=== PATIENT | female | born 1945 | race Caucasian/White ===

== ENCOUNTER → 2016-05-23 | Outpatient (CLI) | payer OTHER ==
[~2016-05-23] MED LIST: ASPIRIN81 M1 PO; ASPIRIN81 M2 PO; FLEXERIL10 M1 PO; GABAPENTIN800 MG PO; HYDROCODON-ACE1 EAC7 PO; K-DUR20 ME1 PO; LEVAQUIN PO; LEVAQUIN750 M1 PO; LISINOPRIL10 MG PO; LOMOTIL WHITE2.5 M1 PO; METOPROLOL TAR25 MG PO; NEURONTIN100 MG PO; PLAVIX PO; SIMVASTATIN40 MG PO; VITAMIN B12-FO1 EACH PO
--- NOTE | ~2016-05-23 | CR7 ---
[facility] A Service of [facility] RADIOLOGY TEXT RESULTS PATIENT: TIFFANIE CRUZ LOCATION: [facility] : 43 UNIT #: [id number] AGE: [address]: Mendez Ott MD SEX: F ORDER DR: [id number] [facility] [address] [facility]. [place], [place] [address] [id number] MR#: [id number] Acc #: [id number] NAME: TIFFANIE CRUZ. : 1945 SEX: F STUDY DATE/TIME: 05/23/2016 10:21 UNIT: [facility] ROOM: STUDY DESCRIPTION: CR Abdomen Single AP View Attending Physician: Mendez Ott M.D. Referring Physician: Mendez Ott M.D. Ordering Physician: Mendez Ott M.D. Primary Care Physician: Charanjit Boo M.D. MEDICAL IMAGING REPORT This report is preliminary unless electronic signature is present EXAM Abdominal radiograph 05/23/2016 INDICATIONS Kidney cyst. Generalized abdominal pain and weight loss for the past 1-2 months. History of cervical cancer 2001. PROCEDURE Supine view of the abdomen. COMPARISON STUDIES CT from 02/13/2010 FINDINGS No definite visible radiodense urinary system calculus. A tiny radiodensity projecting between the left 12th and 11th ribs is favored to represent calcification along the splenic artery seen on the previous CT. There is postsurgical change in the pelvis. Nonobstructing bowel gas pattern and significant degenerative change in the lower lumbar spine. IMPRESSION 1. No definite visible radiodense urinary system calculus. See above. 2. Degenerative change in the lumbar spine. Dictated by... Sanjeev Ahumada M.D. THIS IS AN ELECTRONICALLY VERIFIED REPORT Sanjeev Ahumada M.D. at 05/24/2016 7:35 AM Eleno TD: 05/23/2016 15:26 JOB #: [id number] [facility] A Service of [facility] RADIOLOGY TEXT RESULTS PATIENT: TIFFANIE CRUZ LOCATION: [facility] #: [id number] : 43 UNIT #: [id number] AGE: [address]: Mendez Ott MD SEX: F ORDER DR: MEDICAL IMAGING REPORT Page 1 of 1 COPY
== END | disposition home or self-care (01) ==
LOC: CRAD 10:04
DX: N20.0 Calculus of kidney (principal); N28.1 Cyst of kidney, acquired; M47.816 Spondylosis without myelopathy or radiculopathy, lumbar region
CPT/HCPCS: 74000

== ENCOUNTER 2016-06-04 22:48 | Inpatient (IN) | payer OTHER ==
--- NOTE | ~2016-06-04 | A ---
[facility] Nutrition Therapy DATE: 06/06/16 Patient: TIFFANIE CRUZ Physician: JIM Address: [address] Room/Bed: [address] [place] [address], Zip: [place] [address] Admit Date: 06/05/16 Date of : 43 Height: 5 0 Weight: 79 36.2 NUTRITIONAL ASSESSMENT: REASON: Low BMI 70 yo female admitted for N/V/D, MODE PMH: CAD, HTN, HLD, cervical cancer Anthropometrics: Ht: 5'0" Wt: 35.9 kg (79#) BMI: 15.4 IBW: 100#, 79% IBW Labs: Na+ 129, K+ 3.2, Gluc 182, BUN 33, Creat 2.2, Ca++ 7.0, Alb 3.0, GFR 21.7 Meds: Levaquin, Protonix, D5%, Zofran I/O & Bowel function: 2760/1229, last BM 06/05 (diarrhea) Skin Integrity: Small abrasion (R groin), skin tear (mid chest, L lower back), no edema noted Estimated Nutrition Needs: Increased d/t low BMI, wt loss Assessment: Chart reviewed, events noted. Pt has been having intractable N/V/D over the past several days. Pt is not to have dairy per MD note. Pt states having a poor appetite, while the N/V has somewhat subsided. Pt reported ~15-20# wt loss over the past 1-2 months d/t N/V/D. RD architect intern provided verbal and written N/V/D diet education. Pt verbalized understanding. RD architect intern encouraged continuation of Ensure Clear. Pt had no diet questions at this time. See recommendations below. Dx: Inadequate energy intake RT N/V/D AEB 15.4 BMI, 79% IBW, ~15-20# wt loss. Intervention: 1. Diet education 2. Ensure Clear TID 3. Clear liquid diet Monitoring, Evaluation and Goals: 1. PO intake; consume >75% of meals and supplements 2. Weight; prevent unintentional weight loss, promote gradual weight gain 3. Labs; WNL 4. GI; promote regular GI function Recommendations: [facility] Nutrition Therapy DATE: 06/06/16 Patient: TIFFANIE CRUZ Physician: JIM Address: [address] Room/Bed: [address] [place] [address], Zip: [place] [address] Admit Date: 06/05/16 Date of : 43 Height: 5 0 Weight: 79 36.2 1. Continue mcneil Ensure Clear TID w/ meals. 2. Once diet advances, please order Ensure Enlive shakes TID. 3. Once medically feasible, advance the pt to a low sodium diet as tolerated. Pt is at a moderate-severe nutritional risk. RD will f/u per protocol. Respectfully, Kaykay Landin, Pantry Chef Talita Rodriguez, SCOTT, LD Food and Nutritional Services [facility] [place] [facility] cc: client file
--- NOTE | ~2016-06-04 | CO ---
Unit #: [id number] #: [id number] Patient: TIFFANIE CRUZ [id number] [address] [address] [id number] I MR#: [id number] NAME: TIFFANIE CRUZ. ROOM: 55 Age: 70 Sex: F Admission Date: 06/05/2016 : 1945 Attending Physician: Marvin Lomeli M.D. Primary Care Physician: Charanjit Boo M.D. Consultation Date: 06/07/2016 CONSULTATION REPORT REASON FOR CONSULTATION Antibiotic management in a patient with E. coli sepsis. HISTORY OF PRESENT ILLNESS This is a 70-year-old female who had several day history of nausea, vomiting, diarrhea with associated weakness for several days prior to admission. The patient denies any fever or chills at home. She denies any chest pain, shortness of breath. She was admitted to the hospital for further evaluation and she was noted to have elevated creatinine, elevated white blood cell count with left shift and positive blood cultures for E. coli. ID was asked to evaluate for further management. The patient is currently awaiting a CT scan of her abdomen and pelvis. In discussion with the patient, she reports that she does not urinate. She has a "bladder bag" from radiation cystitis when she had cervical cancer in 2001. She denies any changes in the urine but she does report that the urine sample that was taken was from the bag and not through sterile technique. The patient reports her nausea, vomiting and diarrhea have all subsided. PAST MEDICAL HISTORY 1. Coronary artery disease with stent placement. 2. GI bleed. 3. Hypertension. 4. Hyperlipidemia. 5. Cervical cancer with chemotherapy and radiation in 2001. 6. She had bladder perforation and radiation cystitis. 7. Multiple colonoscopies. 8. Multiple procedures. SOCIAL HISTORY She denies any alcohol, tobacco or other drug use. She has a past tobacco use. ALLERGIES No known allergies. MEDICATIONS The patient is currently on Levaquin. For other medications please refer to patient's MAR. REVIEW OF SYSTEMS Negative except for as previously mentioned above in the History of Present Illness. Unit #: [id number] #: [id number] Patient: TIFFANIE CRUZ PHYSICAL EXAMINATION VITAL SIGNS: Temperature 98.9 with a T-max of 101.2, pulse is 80, blood pressure is 126/70 and respiratory rate is 18. GENERAL: This is a no apparent distress female who is resting in the bed comfortably. HEENT/NECK: Her pupils are equal. Her neck is supple. CARDIOVASCULAR: S1, S2. Regular rate and rhythm. PULMONARY: Clear to auscultation bilaterally with no wheezes or rhonchi noted. ABDOMEN: Positive bowel sounds. Soft and nontender. There is a urostomy that is noted with clear urine and the (1) stoma is pink. EXTREMITIES: She has no clubbing, cyanosis or edema or non-healing wounds on her extremities. DIAGNOSTIC STUDIES LABORATORY: BUN 21, creatinine 1.9 which is improved from 3.5 on admission. Sodium 131, potassium 3.4, chloride 104, CO2 18, bilirubin 0.8, AST 31, ALT of 21. Lactic acid on admission was 1.2. WBC 6.8 which is improved from 14.9 on admission with 25% bands, platelets 172, hemoglobin 9.2, hematocrit 28.5. Urinalysis is a nonsterile specimen collected. Urine culture is pending. However, suspect this will be contamination as it was collected in a non-sterile technique. 06/05 blood culture shows E. coli. Sensitivity is noted. She is pansensitive with no resistance. IMAGING: CT scan is currently pending. It does appear in late April of 2016 she had an abdominal film for weight loss, abdominal pain for several months which was negative for stones. IMPRESSION This is a 70-year-old female with a history of cervical cancer in 2021 with radiation cystitis. The patient now has a development of a urostomy. Over the last several days, the patient has had persistent nausea, vomiting and diarrhea which has since subsided since admission to the hospital. The patient is noted to have two of two positive blood cultures for E. coli that is pansensitive. At this time, suspect that the E. coli bacteremia is secondary to a urologic source. However, agree with CT scan of the abdomen and pelvis due to patient's reported nausea, vomiting and diarrhea on admission. Patient may require a evaluation due to her past history of radiation cystitis. At this time, I would like to change antibiotic therapy from Levaquin to ceftriaxone 2 g daily. Would recommend to repeat blood cultures x2 30 minutes apart. Will continue to follow CBC and BMP. However, both of these have improving leukocytosis and creatinine function. This case will be discussed with Dr. Jose Eid who will evaluate this patient today. Thank you for allowing us to participate in the care of this patient. Further recommendations to follow pending patient's clinical course. Unit #: [id number] #: [id number] Patient: TIFFANIE CRUZ J Dictated by... Taniya BerkowitzPShelleyRShelleyNShelley for Aparna Carrillo/vaughn TD: 06/07/2016 10:44 JOB #: [id number] CONSULTATION REPORT Page 1 of 1 X X CONSULTATION REPORT
--- NOTE | ~2016-06-04 | CT4 ---
[facility] A Service of [facility] RADIOLOGY TEXT RESULTS PATIENT: TIFFANIE CRUZ LOCATION: [facility] 559-01 : 43 UNIT #: [id number] AGE: [address]: Marvin Lomeli MD SEX: F ORDER DR: [id number] [facility] [address] [facility]. [place], [place] [address] [id number] I MR#: [id number] #: [id number] NAME: TIFFANIE CRUZ. : 1945 SEX: F STUDY DATE/TIME: 06/07/2016 11:31 UNIT: [facility] ROOM: [facility] STUDY DESCRIPTION: CT Abd and Pelv Wo Cont Attending Physician: Marvin Lomeli M.D. Ordering Physician: Marvin Lomeli M.D. Primary Care Physician: Charanjit Boo M.D. MEDICAL IMAGING REPORT This report is preliminary unless electronic signature is present EXAM CT abdomen and pelvis without contrast INDICATIONS Nausea, vomiting, diarrhea since 06/01/2016. PROCEDURE Unenhanced CT of the abdomen and pelvis. This CT exam was performed with one or more of the following radiation dose reduction techniques: automatic exposure control, adjustment of mA and/or kV according to patient size, and iterative reconstruction. COMPARISON 02/13/2010 FINDINGS Abdomen without contrast: Bilateral pleural effusions trace on the right, small to moderate on the left. There is minimal bibasilar atelectasis. The liver, spleen, adrenal glands, pancreas and gallbladder show no definite acute abnormality. Postsurgical change in the bowel in the right lower quadrant. There is a right mid abdominal ostomy. No organized fluid collection is seen in the abdomen. There is moderate bilateral hydronephrosis and hydroureter. The ureters are prominent to the level of the pelvic inlet. Pelvis without contrast: Bladder is not well seen. It may be surgically absent. Correlate with patient's operative history. There is mild thickening of small bowel loops in the pelvis and a small amount of fluid scattered in the pelvis. No aggressive appearing bone lesion. IMPRESSION [facility] A Service of [facility] RADIOLOGY TEXT RESULTS PATIENT: TIFFANIE CRUZ LOCATION: [facility] 559-01 : 43 UNIT #: [id number] AGE: [address]: Marvin Lomeli MD SEX: F ORDER DR: 1. Postsurgical change of small bowel in the right lower quadrant as well as a right mid abdominal ostomy. The bladder is not well seen and may be decompressed or surgically absent. Correlate with patient's operative history. 2. There is moderate bilateral hydroureteronephrosis extending to the pelvic inlet at which point the ureters are not well seen. Correlate with patient's operative history. The patient may be status post cystectomy with urinary diversion. 3. Mild thickening of small bowel loops in the pelvis as well as a small amount of pelvic fluid nonspecific and may be within recent postsurgical limits. No definite organized fluid collection is seen. 4. Bilateral pleural effusions. Dictated by... Sanjeev Ahumada M.D. THIS IS AN ELECTRONICALLY VERIFIED REPORT Sanjeev Ahumada M.D. at 06/08/2016 7:19 AM EED/cynthia TD: 06/07/2016 21:39 JOB #: [id number] MEDICAL IMAGING REPORT Page 1 of 1 COPY
--- NOTE | ~2016-06-04 | HP ---
Unit #: [id number] #: [id number] Patient: TIFFANIE CRUZ [id number] [address] [address] [id number] I MR#: [id number] NAME: TIFFANIE CRUZ. ROOM: 559 Age: 70 Sex: F Admission Date: 06/05/2016 : 1945 Attending Physician: Marvin Lomeli M.D. Primary Care Physician: Charanjit Boo M.D. HISTORY AND PHYSICAL REASON FOR ADMISSION Intractable nausea, vomiting, diarrhea, profound weakness. HISTORY OF PRESENT ILLNESS The patient is a 70-year-old female who resides at home with her daughter who presented to the hospital secondary to intractable nausea, vomiting, as well as profound weakness that she had been having over the past several days. She states that she is usually fairly independent, is able to ambulate without any difficulty, shortness of breath. She is able to function fairly independently in regards to her normal activities of daily living but she states over the past four to five days began developing nausea, vomiting, as well as diarrhea. While she was evaluated in the emergency room, it was noted her creatinine was elevated at 3.5, unclear baseline. Bandemia was noted at 25%. White count was elevated at 15,000 and, thus, the decision was made for acute kidney injury, dehydration, possible sepsis on admission. PAST MEDICAL HISTORY Through chart review, coronary artery disease with prior stent placement. [facility] Director noted to be Dr. Arita. A prior history of GI bleed in June 2008, hypertension, hyperlipidemia, prior history of cervical cancer, chemotherapy and radiation 2001. PAST SURGICAL HISTORY Aforementioned cardiac catheterization with drug-eluting stents June 2008 as well as February of 2009, colonoscopies per patient with last one being approximately 2008. SOCIAL HISTORY The patient resides with her daughter at home. She denies any alcohol or tobacco use. There is a prior history of tobacco use. I believe approximately a 30-pack year smoking history. FAMILY HISTORY Reviewed, noncontributory, nonpertinent secondary to advanced age. ALLERGIES No known drug allergies. HOME MEDICATIONS Listed, unverified. The patient only tells me that she takes cholesterol medications, blood pressure medications as well as gabapentin. Unit #: [id number] #: [id number] Patient: TIFFANIE CRUZ REVIEW OF SYSTEMS Please see HPI, 12-point otherwise negative except for those positive noted in the HPI. PHYSICAL EXAMINATION GENERAL APPEARANCE: The patient is a frail, 70-year-old female in no acute distress. VITAL SIGNS: Temperature on admission 98.6. Pulse 104. Respiratory rate 20. Blood pressure 96/81. HEENT: Atraumatic, normocephalic. Ears: Tympanic membranes do not reveal any erythema or injection. NECK: Supple. CARDIOVASCULAR: S1, S2 without murmur. RESPIRATORY: Clear. GASTROINTESTINAL/ABDOMEN: Diffuse tenderness noted but no rebound. No guarding. LOWER EXTREMITIES: No evidence of any lower extremity edema. No calf tenderness. NEUROLOGIC: The patient is awake and oriented x3. No evidence of any focal nerve deficits. DIAGNOSTIC STUDIES LABORATORY: Labs at the time of admission include an aforementioned elevated white count as well as a creatinine at 3.5. GFR estimated at 12. Repeat laboratory studies show a creatinine of 3.1, GFR 14. Stool studies show C. diff. currently pending. ER COURSE The patient received normal saline, Zofran and Mylanta. INITIAL ADMISSION DIAGNOSES 1. Intractable nausea, vomiting. 2. Intractable diarrhea. 3. Acute kidney injury. 4. Leukocytosis. 5. Prior history of coronary artery disease. 6. Prior history of hypertension. 7. Hyperlipidemia. PLAN Admission telemetry floor. Blood cultures have already been drawn. Certainly, the patient is alert and oriented x3. She does not appear to have a clinical picture of sepsis at the present time. C. diff. is currently pending. We will try to advance diet from clears into regular. If she is unable to tolerate, GI consultation will be obtained. At this point, from a cardiac standpoint, she is currently stable. Routine laboratory studies to follow. Plans have been reviewed with patient. We will replenish electrolytes, continue IV fluids, follow labs, recheck BMP in a.m. Dictated by Aparna Leach/mina TD: 06/06/2016 09:32 JOB #: [id number] Unit #: [id number] #: [id number] Patient: TIFFANIE CRUZ HISTORY AND PHYSICAL Page 1 of 1 X Marvin Lomeli MD HISTORY AND PHYSICAL
--- NOTE | ~2016-06-04 | FU ---
[facility] Nutrition Therapy DATE: 06/09/16 Patient: TIFFANIE CRUZ Physician: MORCAR Address: [address] [facility] Room/Bed: [address] [place] [address], Zip: [place] [address] Admit Date: 06/05/16 Date of : 43 Height: 5 0 Weight: 89 40.5 NUTRITION MONITORING/FOLLOW-UP: Reason: Nutrition follow-up Anthropometrics: Ht: 5'0" Adm wt: 79# (36 KG) BMI: 15.4 Current wt: 89# Labs: Na+ 132, K+ 3.1, Gluc 156, Creat 1.5, Ca++ 6.9 Meds: Protonix, Zofran, NaCl I&O's: 1110/1400, last BM 06/08 (diarrhea) Skin: no changes, no edema noted Assessment: Chart reviewed, events noted. Per chart, plans for d/c home. Pt's diet has progressed from clear liquid to regular. Pt reported overall feeling better and a moderate appetite. Pt reported eating ~40-50% of meals. Pt reported not liking Ensure Clear. RD internal audit senior manager encouraged adequate calorie/protein/fluid intake d/t weight loss and N/V/D. RD internal audit senior manager encouraged Ensure Enlive, pt agreed to try chocolate flavor. RD internal audit senior manager encouraged supplement intake at home if poor appetite and PO intake remains. Pt verbalized understanding and reported no diet questions at this time. See recommendations below. Dx: Inadequate energy intake RT N/V/D AEB 15.4 BMI, 79% IBW, ~15-20# weight loss. -ACTIVE Intervention: 1. Ensure BID 2. Regular diet Monitoring, Evaluation and Goals: NOT MET 1. PO intake; consume >75% of meals and supplements 2. GI; promote regular GI function 3. Weight; promote gradual weight gain towards healthy BMI, prevent unintentional weight loss 4. Labs; WNL Recommendations: 1. Please d/c Ensure Clear; Order chocolate Ensure BID. 2. Appreciate family and staff to continue to encourage adequate oral intake. Status: Pt is at a mild-moderate nutritional risk. [facility] Nutrition Therapy DATE: 06/09/16 Patient: TIFFANIE CRUZ Physician: JIM Address: [address] [place] [address] Room/Bed: [address] [place] [address], Zip: [place] [address] Admit Date: 06/05/16 Date of : 43 Height: 5 0 Weight: [address] will f/u per protocol. Respectfully, Kaykay Landin, X Ray Equipment Tester Dana Singh MS, RD, LD Food and Nutritional Services [facility] cc: client file
--- NOTE | ~2016-06-04 | DS ---
Unit #: [id number] #: [id number] Patient: TIFFANIE CRUZ [id number] [address] [place], [place] [address] [id number] I MR#: [id number] NAME: TIFFANIE CRUZ. ROOM: 559 Age: 70 Sex: F Admission Date: 06/05/2016 : 1945 Discharge Date: 06/09/2016 Attending Physician: Marvin Lomeli M.D. Primary Care Physician: Charanjit Boo M.D. DISCHARGE SUMMARY REASON FOR ADMISSION Intractable nausea, vomiting and diarrhea. HISTORY OF PRESENT ILLNESS/HOSPITAL COURSE The patient is a very pleasant 70-year-old female who resides at home with her daughter, presented secondary to above. Through her hospital course, she received appropriate IV fluids. Her initial creatinine was noted to be elevated at 3.5. Acute kidney injury was noted with unclear baseline. Her creatinine did return to approximately 1.5 which likely represents her baseline. Electrolytes were appropriately replaced while she was here. Initial blood cultures were positive for E. coli bacteremia, 2/. Consultation was placed to infectious disease services. Routine blood cultures were administered. The patient did receive IV Rocephin while she was here. Repeat blood cultures did not show any acute bacterial growth and recommendation has been made from infectious disease services for p.o. Levaquin q.48 hours x2 weeks at time of discharge. The patient did undergo CT abdomen and pelvis after her urinalysis was negative. I then became concerned for possible underlying etiology of E. coli. Her CT abdomen and pelvis was otherwise unremarkable. There was no acute process which was noted. Post surgical changes of small bowel as well as bladder surgery were noted. Her C. difficile toxin was negative. She was given Lomotil. She was able to tolerate diet well without difficulty but there was no evidence of any nausea or emesis episodes while she was here. At this point in time, she appears stable to be discharged home. It should be noted throughout her hospital course that her systolic blood pressure remained in the 90s to 100s. She did not require any blood pressure medications. At time of discharge, these will be altogether discontinued. FINAL DISCHARGE DIAGNOSES 1. Intractable nausea and vomiting, now resolved. 2. Diarrhea, now resolved. 3. Acute kidney injury. 4. Chronic kidney disease, baseline creatinine 1.5. 5. Leukocytosis on admission, now resolved. 6. Gram-negative johanna bacteremia/Escherichia coli bacteremia. Unit #: [id number] #: [id number] Patient: TIFFANIE CRUZ 7. Prior history of coronary artery disease. 8. Prior history of hypertension. 9. Hyperlipidemia. FINAL DISCHARGE MEDICATIONS 1. Lomotil 2.5 mg p.o. q.6 p.r.n. 2. Simvastatin 40 mg p.o. q. h.s. 3. K-Dur/potassium 20 mEq p.o. daily x3 days. 4. Levaquin 750 mg p.o. q.48 x2 weeks. DISCHARGE CONDITION Stable. DISCHARGE DISPOSITION Home. Dictated by... Aparna Leach/vaughn TD: 06/10/2016 10:23 JOB #: [id number] DISCHARGE SUMMARY Page 1 of 1 X Marvin Lomeli MD X DISCHARGE SUMMARY
[~2016-06-04 22:48] MED LIST changes: -ASPIRIN81 M2 PO; -GABAPENTIN800 MG PO; -HYDROCODON-ACE1 EAC7 PO; -K-DUR20 ME1 PO; -LEVAQUIN750 M1 PO; -LISINOPRIL10 MG PO; -LOMOTIL WHITE2.5 M1 PO; -SIMVASTATIN40 MG PO
[2016-06-05 00:07] LABS: BASOPHIL% 0.1 % (0-2.5); DIFF IND YES; HEMATOCRIT 36.5 % (35.0-45.0); HEMOGLOBIN 11.5 gm/dL (12.0-16.0); LYMPHOCYTE# 0.5 X10e3 (1.0-3.5); LYMPHOCYTE% 3.5 % (17.0-45.0); MEAN CELL VOLUME 79.5 FL (83-96); MEAN CORPUSCULAR HEMOGLOBIN 25.1 PG (28-34); MEAN CORPUSCULAR HGB CONC 31.5 g/dL (30-36); MEAN PLATELET VOLUME 7.3 FL (6.5-11.5); MONOCYTE# 0.8 X10e3 (0-1.0); MONOCYTE% 5.5 % (3.0-12.0); NEUTROPHIL# 13.5 X10e3 (1.5-7.1); NEUTROPHIL% 90.9 % (40-75); PLATELET COUNT 299 X10e3 (140-420); RED BLOOD COUNT 4.59 X10e (3.90-5.30); RED CELL DISTRIBUTION WIDTH 17.2 % (11.0-15.5); WHITE BLOOD COUNT 14.9 X10e3 (4.0-10.5)
[2016-06-05 00:29] LABS: PLATELET ESTIMATE NORMAL (NORMAL)
[2016-06-05 00:30] LABS: ANISOCYTOSIS SL; HYPOCHROMIA SL; MICROCYTOSIS MOD
[2016-06-05 00:33] LABS: BILIRUBIN, DIRECT 0.2 mg/dL (0.0-0.2); BILIRUBIN,INDIRECT 0.6 mg/dL (0.0-0.9); BILIRUBIN,TOTAL 0.8 mg/dL (0.2-2.0); BUN/CREATININE RATIO 14.28; CREATININE SERUM 3.5 mg/dL (0.6-1.4); GLOM FILT RATE Estimated 12.4 mL/min (>60); POTASSIUM 3.9 mmol/L (3.5-5.1)
[2016-06-05 05:49] LABS: BASOPHIL% 0.1 % (0-2.5); HEMATOCRIT 35.5 % (35.0-45.0); HEMOGLOBIN 11.2 gm/dL (12.0-16.0); LYMPHOCYTE# 0.3 X10e3 (1.0-3.5); LYMPHOCYTE% 2.4 % (17.0-45.0); MEAN CELL VOLUME 79.5 FL (83-96); MEAN CORPUSCULAR HEMOGLOBIN 25.1 PG (28-34); MEAN CORPUSCULAR HGB CONC 31.6 g/dL (30-36); MEAN PLATELET VOLUME 7.2 FL (6.5-11.5); MONOCYTE# 0.7 X10e3 (0-1.0); MONOCYTE% 4.8 % (3.0-12.0); NEUTROPHIL# 12.6 X10e3 (1.5-7.1); NEUTROPHIL% 92.7 % (40-75); PLATELET COUNT 275 X10e3 (140-420); RED BLOOD COUNT 4.46 X10e (3.90-5.30); RED CELL DISTRIBUTION WIDTH 16.8 % (11.0-15.5); WHITE BLOOD COUNT 13.6 X10e3 (4.0-10.5)
[2016-06-05 05:50] LABS: DIFF IND NO
[2016-06-05 06:52] LABS: BUN/CREATININE RATIO 15.16; CALCIUM SERUM 7.6 mg/dL (8.4-10.2); CREATININE SERUM 3.1 mg/dL (0.6-1.4); GLOM FILT RATE Estimated 14.3 mL/min (>60); POTASSIUM 4.2 mmol/L (3.5-5.1)
[2016-06-06 06:22] LABS: BASOPHIL% 0.1 % (0-2.5); EOSINOPHIL% 0.6 % (0.0-7.0); HEMATOCRIT 32.2 % (35.0-45.0); HEMOGLOBIN 10.3 gm/dL (12.0-16.0); LYMPHOCYTE# 0.2 X10e3 (1.0-3.5); MEAN CELL VOLUME 78.8 FL (83-96); MEAN CORPUSCULAR HEMOGLOBIN 25.2 PG (28-34); MEAN CORPUSCULAR HGB CONC 31.9 g/dL (30-36); MEAN PLATELET VOLUME 7.3 FL (6.5-11.5); MONOCYTE# 0.3 X10e3 (0-1.0); NEUTROPHIL# 7.2 X10e3 (1.5-7.1); NEUTROPHIL% 92.3 % (40-75); PLATELET COUNT 204 X10e3 (140-420); RED BLOOD COUNT 4.08 X10e (3.90-5.30); RED CELL DISTRIBUTION WIDTH 17.1 % (11.0-15.5); WHITE BLOOD COUNT 7.8 X10e3 (4.0-10.5)
[2016-06-06 06:27] LABS: DIFF IND NO
[2016-06-06 07:33] LABS: CREATININE SERUM 2.2 mg/dL (0.6-1.4); GLOM FILT RATE Estimated 21.7 mL/min (>60); POTASSIUM 3.2 mmol/L (3.5-5.1)
[2016-06-06] MEDS ORDERED: GABAPENTIN800 MG PO (09:30)
[2016-06-06] MEDS ORDERED: LISINOPRIL10 MG PO (09:32)
[2016-06-06] MEDS ORDERED: HYDROCODON-ACE1 EAC7 PO (09:32)
[2016-06-06] MEDS ORDERED: SIMVASTATIN40 MG PO (09:33)
[2016-06-06 12:07] LABS: URINE APPEARANCE CLOUDY; URINE BILIRUBIN NEG (NEG); URINE BLOOD 2+ (NEG); URINE COLOR YELLOW; URINE GLUCOSE NEG (NEG); URINE KETONE NEG (NEG); URINE LEUKOCYTE ESTERASE 2+ (NEG); URINE NITRATE POS (NEG); URINE PROTEIN 2+ (NEG); URINE SPECIFIC GRAVITY 1.009 (1.003-1.035); URINE UROBILINOGEN 0.2 MG/DL (NEG)
[2016-06-06 12:15] LABS: U HYALINE CASTS AUWI 0-2 /[LPF]; URINE BACTERIA AUWI 4+ (NEGATIVE); URINE SQUAMOUS EPITHELIAL CELL NONE SEEN /[HPF]; UWBCS1 AUWI 50-100 (0-5)
[2016-06-07 05:34] LABS: HEMATOCRIT 28.5 % (35.0-45.0); HEMOGLOBIN 9.2 gm/dL (12.0-16.0); MEAN CELL VOLUME 79.2 FL (83-96); MEAN CORPUSCULAR HEMOGLOBIN 25.6 PG (28-34); MEAN CORPUSCULAR HGB CONC 32.3 g/dL (30-36); MEAN PLATELET VOLUME 7.3 FL (6.5-11.5); RED BLOOD COUNT 3.59 X10e (3.90-5.30); RED CELL DISTRIBUTION WIDTH 17.1 % (11.0-15.5); WHITE BLOOD COUNT 6.8 X10e3 (4.0-10.5)
[2016-06-07 07:14] LABS: BUN/CREATININE RATIO 11.05; CREATININE SERUM 1.9 mg/dL (0.6-1.4); GLOM FILT RATE Estimated 25.9 mL/min (>60); POTASSIUM 3.4 mmol/L (3.5-5.1)
[2016-06-08 07:27] LABS: HEMATOCRIT 27.9 % (35.0-45.0); MEAN CELL VOLUME 78.7 FL (83-96); MEAN CORPUSCULAR HEMOGLOBIN 25.4 PG (28-34); MEAN CORPUSCULAR HGB CONC 32.3 g/dL (30-36); MEAN PLATELET VOLUME 7.2 FL (6.5-11.5); RED BLOOD COUNT 3.54 X10e (3.90-5.30); WHITE BLOOD COUNT 6.2 X10e3 (4.0-10.5)
[2016-06-08 08:12] LABS: BUN/CREATININE RATIO 8.66; CALCIUM SERUM 6.9 mg/dL (8.4-10.2); CREATININE SERUM 1.5 mg/dL (0.6-1.4); GLOM FILT RATE Estimated 34.5 mL/min (>60); POTASSIUM 3.1 mmol/L (3.5-5.1)
[2016-06-09] MEDS ORDERED: LOMOTIL WHITE2.5 M1 PO (11:23)
[2016-06-09] MEDS ORDERED: LEVAQUIN750 M1 PO (11:26)
[2016-06-09] MEDS ORDERED: K-DUR20 ME1 PO (11:27)
== END 2016-06-09 13:22 | disposition home health service (06) | DRG 872 ==
LOC: CED 22:48 → CEDOF 06-05 01:53 → C5B 06-05 04:47
PROVIDERS: Emergency Medicine; Family Medicine; Internal Medicine
DX: A41.9 Sepsis, unspecified organism (principal); N17.9 Acute kidney failure, unspecified; Z68.1 Body mass index [BMI] 19.9 or less, adult; B96.20 Unspecified Escherichia coli [E. coli] as the cause of diseases classified elsewhere; R11.2 Nausea with vomiting, unspecified; R19.7 Diarrhea, unspecified; I12.9 Hypertensive chronic kidney disease with stage 1 through stage 4 chronic kidney disease, or unspecified chronic kidney disease; N18.9 Chronic kidney disease, unspecified; R63.6 Underweight; I25.10 Atherosclerotic heart disease of native coronary artery without angina pectoris; Z95.5 Presence of coronary angioplasty implant and graft; Z87.891 Personal history of nicotine dependence; Z85.41 Personal history of malignant neoplasm of cervix uteri; Z92.21 Personal history of antineoplastic chemotherapy; E78.5 Hyperlipidemia, unspecified
CPT/HCPCS: 36415; 74176; 80048; 80076; 81003; 82607; 83605; 83690; 85025; 85027; 87040; 87045; 87077; 87086; 87186; 87427; 87493; 87899; 96361; 96374; 97110; 97116; 97162; 97166; 97530; 99285; C9113; G8978-GP; G8979-GP; G8980-GP; G8987-GO; G8988-GO; J0696; J1956; J2405; J3420

== ENCOUNTER 2016-10-29 14:16 | Emergency (ER) | payer MEDICARE, OTHER ==
[~2016-10-29] VITALS: Ht 142.2 cm; Wt 32.6 kg
--- NOTE | ~2016-10-29 | EKG ---
PATIENT: TIFFANIE CRUZ UNIT #: [id number] Ventricular Rate: 70 BPM Atrial Rate: 70 BPM P-R Interval: 124 ms QRS Duration: 118 ms Q-T Interval: 416 ms QTC Calculation(Bezet): 449 ms P Cecil: 72 degrees Calculated R Cecil: 10 degrees Calculated T Cecil: -2 degrees Diagnosis Line: Normal sinus rhythm Diagnosis Line: Incomplete right bundle branch block Diagnosis Line: Otherwise normal ECG Diagnosis Line: When compared with ECG of 01-DEC-2014 08:46, Diagnosis Line: No significant change was found Diagnosis Line: Confirmed by MANOJ APONTE MD ([id number]) on 10/31/2016 Diagnosis Line: 1:57:34 PM INTERPRETING MD: FADI LOERA
--- NOTE | ~2016-10-29 | CR72 ---
[facility] A Service of [facility] & [facility] RADIOLOGY TEXT RESULTS PATIENT: TIFFANIE CRUZ LOCATION: [facility] : 41 UNIT #: [id number] AGE: [address]: Umesh Osuna MD SEX: F ORDER DR: [id number] [facility] [address]. [place], [place] [address] [id number] E MR#: [id number] Acc #: [id number] NAME: TIFFANIE CRUZ. : 1945 SEX: F STUDY DATE/TIME: 10/29/2016 14:51 UNIT: [facility] ROOM: STUDY DESCRIPTION: CR Chest Single View Portable Attending Physician: Umesh Osuna M.D. Ordering Physician: Armando Wallace M.D. Primary Care Physician: Charanjit Boo M.D. MEDICAL IMAGING REPORT This report is preliminary unless electronic signature is present EXAM Frontal chest 10/29/2016 INDICATIONS 70-year-old female with a history of syncopal episode yesterday, cervical cancer. Mild chest congestion. TECHNIQUE Frontal chest compared with 12/01/1954. FINDINGS Cardiac silhouette unremarkable. The vascularity is normal. Lungs are clear. No pneumothorax. Probable sequela of rotator cuff tear on the right. Shoulder replacement changes on the left. IMPRESSION 1. Negative frontal chest. 2. Probable rotator cuff tear on the right status post shoulder replacement on the left. Dictated by... Júnior Perera M.D. THIS IS AN ELECTRONICALLY VERIFIED REPORT Júnior Perera M.D. at 10/30/2016 11:21 PM HODAN/murray TD: 10/30/2016 03:36 JOB #: [id number] MEDICAL IMAGING REPORT Page 1 of 1 COPY
[~2016-10-29 14:16] MED LIST changes: +GABAPENTIN800 MG PO; +HYDROCODON-ACE1 EAC7 PO; +K-DUR20 ME1 PO; +LEVAQUIN750 M1 PO; +LISINOPRIL10 MG PO; +LOMOTIL WHITE2.5 M1 PO; +SIMVASTATIN40 MG PO
[2016-10-29 15:35] LABS: BASOPHIL# 0.1 X10e3 (0-0.3); BASOPHIL% 0.6 % (0-2.5); DIFF IND NO; EOSINOPHIL# 0.1 X10e3 (0-0.7); EOSINOPHIL% 1.3 % (0.0-7.0); HEMOGLOBIN 9.5 gm/dL (12.0-16.0); LYMPHOCYTE# 1.1 X10e3 (1.0-3.5); LYMPHOCYTE% 10.3 % (17.0-45.0); MEAN CELL VOLUME 74.1 FL (83-96); MEAN CORPUSCULAR HEMOGLOBIN 23.3 PG (28-34); MEAN CORPUSCULAR HGB CONC 31.5 g/dL (30-36); MEAN PLATELET VOLUME 6.5 FL (6.5-11.5); MONOCYTE# 0.6 X10e3 (0-1.0); MONOCYTE% 5.7 % (3.0-12.0); NEUTROPHIL# 8.5 X10e3 (1.5-7.1); NEUTROPHIL% 82.1 % (40-75); PLATELET COUNT 447 X10e3 (140-420); RED BLOOD COUNT 4.06 X10e (3.90-5.30); RED CELL DISTRIBUTION WIDTH 17.1 % (11.0-15.5); WHITE BLOOD COUNT 10.3 X10e3 (4.0-10.5)
[2016-10-29 15:47] LABS: PARTIAL THROMBOPLASTIN TIME 24.7 SECONDS (23.5-31.3); PROTHROMBIN TIME (PATIENT) 10.8 SECONDS (10.0-11.7)
[2016-10-29 16:01] LABS: ALBUMIN SERUM 3.2 g/dL (3.5-5.0); BILIRUBIN, DIRECT 0.1 mg/dL (0.0-0.2); BILIRUBIN,INDIRECT 0.2 mg/dL (0.0-0.9); BILIRUBIN,TOTAL 0.3 mg/dL (0.2-2.0); BUN/CREATININE RATIO 24.37; CALCIUM SERUM 8.8 mg/dL (8.4-10.2); CREATININE SERUM 1.6 mg/dL (0.6-1.4); GLOM FILT RATE Estimated 31.9 mL/min (>60); POTASSIUM 4.8 mmol/L (3.5-5.1); PROTEIN TOTAL SERUM 6.9 g/dL (6.0-8.3)
[2016-10-29] MEDS ORDERED: ASPIRIN81 M2 PO (19:30)
[2016-10-29] MEDS ORDERED: LISINOPRIL10 MG PO (19:31)
== END 2016-10-29 20:08 | disposition home or self-care (01) ==
LOC: CED 14:16
PROVIDERS: Emergency Medicine
DX: I95.9 Hypotension, unspecified (principal); I10 Essential (primary) hypertension; I25.10 Atherosclerotic heart disease of native coronary artery without angina pectoris
CPT/HCPCS: 36415; 71010; 80048; 80076; 82947; 83605; 85025; 85610; 85730; 87040; 93005; 99285; J2543